=== PATIENT | male | born 1980 ===

== ENCOUNTER 2020-06-19 15:57 | Emergency (ER) | payer SELFPAY ==
[~2020-06-19] VITALS: Ht 167.7 cm; Wt 81.6 kg
--- NOTE | 2020-06-19 16:27 | ED General ---
General Stated Complaint: WEAK,HEAD PAIN,RED BUMPS OVER BODY Source of Information: Patient Exam Limitations: No Limitations History of Present Illness Date Seen by Provider: Jun 19, 2020 Time Seen by Provider: 16:13 Initial Comments Patient presents to the ER by private conveyance from home with his father and chief complaint last for 5 days he has had a rash that is bright red over his trunk and upper extremities. It does not itch. He does have body aches and headache but no fever or chills. He was tested yesterday for Covid at [facility] and it was negative. Was not tested for anything else at the time. He works at [employer] and has no known sick exposures. No travel outside the [place]. He has had nausea but no vomiting. No diarrhea or constipation. No significant medical history. No dysuria or history of STD. No cough or shortness of air. Allergies and Home Medications Allergies Coded Allergies: No Known Drug Allergies (Unverified , 06/19/20) Home Medications Naproxen 500 Mg Tablet, 500 MG PO BID PRN for PAIN-BREAKTHROUGH Prescribed by: ALICIA MURRAY on 06/19/201727 Ondansetron 4 Mg Tab.rapdis, 4 MG PO Q6H PRN for NAUSEA/VOMITING Prescribed by: ALICIA MURRAY on 06/19/201727 Prednisone 20 Mg Tab, 40 MG PO DAILY Prescribed by: ALICIA MURRAY on 06/19/201727 Patient Home Medication List Home Medication List Reviewed: Yes Review of Systems Review of Systems Constitutional: chills; No fever; malaise EENTM: No ear discharge, No ear pain Respiratory: No cough, No short of breath Cardiovascular: No chest pain, No palpitations Gastrointestinal: No abdominal pain, No constipation, No diarrhea; nausea; No vomiting Genitourinary: No discharge, No dysuria Musculoskeletal: No back pain, No gout; other (Body aches) All Other Systems Reviewed Negative Unless Noted: Yes Past [id number]-[id number] Hx Patient Social History Alcohol Use: Denies Use Smoking Status: Current Someday Smoker Physical Exam Vital Signs Vital Signs - First Documented 06/19/20 16:14 Temp 36.6 Pulse 113 Resp 22 B/P (MAP) 145/102 (116) Pulse Ox 97 O2 Delivery Room Air Capillary Refill : Height, Weight, BMI Height: '" Weight: lbs. oz. kg; BMI Method: General Appearance: No Apparent Distress, WD/WN, Anxious Eyes: Bilateral Eye Normal Inspection, Bilateral Eye PERRL, Bilateral Eye EOMI HEENT: PERRL/EOMI, Pharynx Normal, Moist Mucous Membranes Neck: Full Range of Motion, Normal Inspection Respiratory: Lungs Clear, Normal Breath Sounds, No Accessory Muscle Use, No Respiratory Distress Cardiovascular: Regular Rate, Rhythm, No Edema, Normal Peripheral Pulses Gastrointestinal: Normal Bowel Sounds, Non Tender, Soft Extremity: Normal Capillary Refill, Normal Inspection Neurologic/Psychiatric: Alert, Oriented x3, No Motor/Sensory Deficits Skin: Other (Faint, erythematous blanchable macular rash with some confluences of patches fairly evenly distributed across the entire trunk upper extremities and neck but sparing the lower extremities and face. Spares the palms and feet.) Progress/Results/Core Measures Suspected Sepsis SIRS Temperature: Pulse: Respiratory Rate: Laboratory Tests 06/19/20 16:24: White Blood Count 6.2 Blood Pressure / Mean: Laboratory Tests 06/19/20 16:24: Creatinine 0.81, INR Comment 1.0, Platelet Count 218, Total Bilirubin 0.7 Results/Orders Lab Results Laboratory Tests Test 06/19/20 16:24 06/19/20 16:27 Range/Units White Blood Count 6.2 4.3-11.0 10^3/uL Red Blood Count 5.48 4.30-5.52 10^6/uL Hemoglobin 15.3 13.3-17.7 g/dL Hematocrit 45 40-54 % Mean Corpuscular Volume 82 80-99 fL Mean Corpuscular Hemoglobin 28 25-34 pg Mean Corpuscular Hemoglobin Concent 34 32-36 g/dL Red Cell Distribution Width 11.6 10.0-14.5 % Platelet Count 218 130-400 10^3/uL Mean Platelet Volume 10.5 9.0-12.2 fL Immature Granulocyte % (Auto) 0 % Neutrophils (%) (Auto) 75 42-75 % Lymphocytes (%) (Auto) 16 12-44 % Monocytes (%) (Auto) 4 0-12 % Eosinophils (%) (Auto) 4 0-10 % Basophils (%) (Auto) 0 0-10 % Neutrophils # (Auto) 4.7 1.8-7.8 10^3/uL Lymphocytes # (Auto) 1.0 1.0-4.0 10^3/uL Monocytes # (Auto) 0.2 0.0-1.0 10^3/uL Eosinophils # (Auto) 0.3 0.0-0.3 10^3/uL Basophils # (Auto) 0.0 0.0-0.1 10^3/uL Immature Granulocyte # (Auto) 0.0 0.0-0.1 10^3/uL Prothrombin Time 13.3 12.2-14.7 SEC INR Comment 1.0 0.8-1.4 Activated Partial Thromboplast Time 30 24-35 SEC Sodium Level 137 135-145 MMOL/L Potassium Level 3.7 3.6-5.0 MMOL/L Chloride Level 102 98-107 MMOL/L Carbon Dioxide Level 24 21-32 MMOL/L Anion Gap 11 5-14 MMOL/L Blood Urea Nitrogen 15 7-18 MG/DL Creatinine 0.81 0.60-1.30 MG/DL Estimat Glomerular Filtration Rate > 60 BUN/Creatinine Ratio 19 Glucose Level 154 H 70-105 MG/DL Calcium Level 8.8 8.5-10.1 MG/DL Corrected Calcium 8.6 8.5-10.1 MG/DL Total Bilirubin 0.7 0.1-1.0 MG/DL Aspartate Amino Transf (AST/SGOT) 34 5-34 U/L Alanine Aminotransferase (ALT/SGPT) 42 0-55 U/L Alkaline Phosphatase 95 40-136 U/L Total Creatine Kinase 53 30-200 U/L C-Reactive Protein High Sensitivity 9.15 H 0.00-0.50 MG/DL Total Protein 7.7 6.4-8.2 GM/DL Albumin 4.2 3.2-4.5 GM/DL Urine Color YELLOW Urine Clarity SL CLOUDY Urine pH 7.0 5-9 Urine Specific [place] 1.020 1.016-1.022 Urine Protein TRACE H NEGATIVE Urine Glucose (UA) NEGATIVE NEGATIVE Urine Ketones TRACE H NEGATIVE Urine Nitrite NEGATIVE NEGATIVE Urine Bilirubin NEGATIVE NEGATIVE Urine Urobilinogen 1.0 < = 1.0 MG/DL Urine Leukocyte Esterase NEGATIVE NEGATIVE Urine RBC (Auto) 2+ H NEGATIVE Urine RBC 10-25 H /HPF Urine WBC 0-2 /HPF Urine Squamous Epithelial Cells RARE /HPF Urine Crystals NONE /LPF Urine Bacteria TRACE /HPF Urine Casts NONE /LPF Urine Mucus MODERATE H /LPF Urine Culture Indicated NO Micro Results Microbiology 06/19/20 Influenza Types A,B Antigen (SHILO) - Final, Complete My Orders Orders - ALICIA MURRAY Cbc With Automated Diff (06/19/20 16:18) Comprehensive Metabolic Panel (06/19/20 16:18) Hs C Reactive Protein (06/19/20 16:18) Ua Culture If Indicated (06/19/20 16:18) Influenza A And B Antigens (06/19/20 16:18) Covid-19 External Lab Results (06/19/20 16:18) Syphilis Antibody Screen (06/19/20 16:18) Lactated Ringers (Lr 1000 Ml Iv Solution (06/19/20 16:30) Ondansetron Injection (Zofran Injectio (06/19/20 16:30) Ketorolac Injection (Toradol Injection) (06/19/20 16:30) Creatine Kinase (06/19/20 17:10) Lactated Ringers (Lr 1000 Ml Iv Solution (06/19/20 17:15) Protime With Inr (06/19/20 17:10) Partial Thromboplastin Time (06/19/20 17:10) Medications Given in ED Current Medications Medications Dose Ordered Sig/Lobito Route Start Time Stop Time Status Last Admin Dose Admin Ketorolac Tromethamine 30 mg ONCE ONCE IVP 06/19/20 16:30 06/19/20 16:31 DC 06/19/20 16:30 30 MG Lactated Ringer's 1,000 ml @ 0 mls/hr Q0M ONCE IV 06/19/20 16:30 06/19/20 16:31 DC 06/19/20 16:27 1,000 MLS/HR Lactated Ringer's 1,000 ml @ 0 mls/hr Q0M ONCE IV 06/19/20 17:15 06/19/20 17:16 DC 06/19/20 17:16 1,000 MLS/HR Ondansetron HCl 8 mg ONCE ONCE IVP 06/19/20 16:30 06/19/20 16:31 DC 06/19/20 16:27 8 MG Vital Signs/I&O 06/19/20 16:14 Temp 36.6 Pulse 113 Resp 22 B/P (MAP) 145/102 (116) Pulse Ox 97 O2 Delivery Room Air Capillary Refill : Progress Note #1: Time: 16:23 Progress Note It appears to be a viral exanthem. His blood pressure is a\\septic but his heart rate is elevated. He has not had any fevers despite checking multiple times at home. He has not had any antipyretics since yesterday. Plan to give him a liter of fluids, lactated Ringer's and some Toradol for the body aches. He is not having any meningismal signs, or evidence of encephalopathy on examination. We will check some labs and if these look okay the plan will be to put him out with conservative management. Progress Note #2: Time: 17:23 Progress Note After the Toradol the patient says all of his body aches are gone. His nausea is gone. His purpuric rash remains. He is not having any itching. Suspect there could be an IgA vasculitis based on the microscopic hematuria. He denies any history of gross hematuria. We will get a go ahead and check for coagulopathy and if that is okay we will give him a total of 2 L of fluid and put him on steroids since he has had poor appetite. We will have him follow-up at [id number] sometime middle or late next week for a repeat set of lab work to look for significant leukocytosis, or evidence of a acute kidney injury. He should probably have repeat urinalysis in 2 to 4 weeks to prove that the hematuria has gone away. 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 Decision time for Depature: 17:30 Referrals: NO,LOCAL PHYSICIAN (PCP/Family) Primary Care Physician Patient Instructions: Viral Exanthem (DC) Add. Discharge Instructions: Your rash is likely caused by a virus of uncertain origin. Typically these will run their course in about a week to 10 days. As long as you are not having difficulty breathing, dehydration or other worrisome symptoms you can wait it out. Drink lots of fluids. Return to the ER for worsening symptoms. Follow-up later next week in the clinic for repeat blood work to check your kidney function and blood in the urine. Prednisone 2 tablets daily for the next 5 days. Naproxen 1 tablet twice a day as necessary for body aches. Tylenol 1000 mg every 8 hours as necessary for body aches. Ondansetron 1 tablet every 6 hours under the tongue as necessary for nausea and/or vomiting. Scripts Naproxen (Naprosyn) 500 Mg Tablet 500 MG PO BID PRN for PAIN-BREAKTHROUGH, #20 TAB 0 Refills Prov: ALICIA MURRAY 06/19/20 Ondansetron (Ondansetron Odt) 4 Mg Tab.rapdis 4 MG PO Q6H PRN for NAUSEA/VOMITING, #8 TAB 0 Refills Prov: ALICIA MURRAY 06/19/20 Prednisone (Prednisone) 20 Mg Tab 40 MG PO DAILY for 5 Days, #10 TAB 0 Refills Prov: ALICIA MURRAY 06/19/20 Work/School Note: Work Release Form Date Seen in the Emergency Department: Jun 19, 2020 Return to Work: Jun 28, 2020 Restrictions: No Restrictions ALICIA MURRAY Jun 19, 2020 16:27
[2020-06-19] MEDS ORDERED: KETOROLAC 30 MG/ML VIAL IVP ONE (16:30)
[2020-06-19] MEDS ORDERED: ONDANSETRON 4 MG/2 ML (SDV) Z0FRAN IVP ONE (16:30)
[2020-06-19] MEDS ORDERED: LACTATED RINGERS 1,000 ML IV ONE ×2 (16:30→17:15)
[2020-06-19 16:31] LABS: BASOPHILS % (AUTO) 0 % (0-10); EOSINOPHILS # (AUTO) 0.3 10^3/uL (0.0-0.3); EOSINOPHILS % (AUTO) 4 % (0-10); HEMATOCRIT 45 % (40-54); HEMOGLOBIN 15.3 g/dL (13.3-17.7); LYMPHOCYTES % (AUTO) 16 % (12-44); MEAN CORPUSCULAR HEMOGLOBIN 28 pg (25-34); MEAN CORPUSCULAR HGB CONC 34 g/dL (32-36); MEAN CORPUSCULAR VOLUME 82 fL (80-99); MEAN PLATELET VOLUME 10.5 fL (9.0-12.2); MONOCYTES # (AUTO) 0.2 10^3/uL (0.0-1.0); MONOCYTES % (AUTO) 4 % (0-12); NEUTROPHILS # (AUTO) 4.7 10^3/uL (1.8-7.8); NEUTROPHILS % (AUTO) 75 % (42-75); PLATELET COUNT 218 10^3/uL (130-400); WHITE BLOOD COUNT 6.2 10^3/uL (4.3-11.0)
[2020-06-19 16:32] LABS: BILIRUBIN,URINE NEGATIVE (NEGATIVE); COLOR,URINE YELLOW; GLUCOSE, URINE (UA) NEGATIVE (NEGATIVE); KETONES,URINE TRACE (NEGATIVE); LEUKOCYTE ESTERASE ,URINE NEGATIVE (NEGATIVE); NITRITE,URINE NEGATIVE (NEGATIVE); PROTEIN,URINE TRACE (NEGATIVE)
[2020-06-19 16:38] LABS: CLARITY,URINE SL CLOUDY
[2020-06-19 16:39] LABS: BACTERIA,URINE TRACE /HPF; SQUAMOUS EPITHELIAL CELL,UR RARE /HPF; WBC,URINE 0-2 /HPF
[2020-06-19 16:42] LABS: ALBUMIN 4.2 GM/DL (3.2-4.5); CHLORIDE 102 MMOL/L (98-107); POTASSIUM 3.7 MMOL/L (3.6-5.0); SODIUM 137 MMOL/L (135-145)
[2020-06-19 16:43] LABS: CALCIUM 8.8 MG/DL (8.5-10.1)
[2020-06-19 16:45] LABS: GLUCOSE 154 MG/DL (70-105); TOTAL PROTEIN 7.7 GM/DL (6.4-8.2)
[2020-06-19 16:46] LABS: BILIRUBIN,TOTAL 0.7 MG/DL (0.1-1.0); CARBON DIOXIDE 24 MMOL/L (21-32)
[2020-06-19 16:48] LABS: ALKALINE PHOSPHATASE 95 U/L (40-136); CREATININE SERUM 0.81 MG/DL (0.60-1.30); GFR ESTIMATED > 60
[2020-06-19 16:49] LABS: BUN/CREATININE RATIO 19
[2020-06-19 16:51] LABS: ALANINE AMINOTRANSFERASE 42 U/L (0-55)
[2020-06-19 17:22] LABS: PROTHROMBIN TIME PATIENT 13.3 SEC (12.2-14.7)
[2020-06-19] MEDS ORDERED: PRD20T PO (17:28)
[2020-06-19] MEDS ORDERED: NAPR-1071 PO (17:28)
[2020-06-19] MEDS ORDERED: ONDA4TAB11 PO (17:28)
[2020-06-19 18:03] VITALS: BP 120/83
== END 2020-06-19 18:03 | disposition home or self-care (01) ==
LOC: EDUNIT# 15:57 → ER 15:59
DX: B09 Unspecified viral infection characterized by skin and mucous membrane lesions (principal); D69.0 Allergic purpura; R31.21 Asymptomatic microscopic hematuria; F17.200 Nicotine dependence, unspecified, uncomplicated; Z79.52 Long term (current) use of systemic steroids
CPT/HCPCS: 36415; 80053; 81000; 82550; 85025; 85610; 85730; 86141; 86780; 87804